=== PATIENT | female | born 1980 | race Caucasian/White ===

== ENCOUNTER 2017-03-26 05:19 | Day surgery (SDC) | payer OTHER ==
[~2017-03-26 05:19] MED LIST: CYANOCOBAL1000 MCG/2 IM; EPIPEN ADU0.3 MG/0.3 IM; FENOFIBRATE160 M1 PO; FIORICET 50-301 EACH PO; NOHOMEMEDS; PRAVACHOL40 MG PO; SYNTHROID25 MCG PO; ULTRAM50 MG PO; WOMEN'S DAILY1 EAC4 PO
[2017-03-26 05:58] VITALS: BP 113/70
[2017-03-26] MEDS ORDERED: NORCO 5/3251 TABLET PO (08:29)
[2017-03-26] MEDS ORDERED: MOTRIN800 MG PO (08:29)
[2017-03-26 09:57] VITALS: BP 108/67
[2017-03-26 11:00] VITALS: BP 110/58
== END 2017-03-26 11:30 | disposition home or self-care (01) ==
LOC: SDC 05:19
PROC: 0U5B4ZZ Destruction of Endometrium, Percutaneous Endoscopic Approach (ICD-10-PCS; principal; 2017-03-26)
DX: N80.3 Endometriosis of pelvic peritoneum (principal); N94.6 Dysmenorrhea, unspecified; E11.9 Type 2 diabetes mellitus without complications; E06.3 Autoimmune thyroiditis; E78.5 Hyperlipidemia, unspecified; E66.9 Obesity, unspecified
CPT/HCPCS: J1100; J1170; J1885; J2250; J2405; J3010; S0020